=== PATIENT | female | born 1950 | race Caucasian/White ===

== ENCOUNTER 2025-05-21 14:36 | Outpatient (AMB) | payer BC, SELFPAY ==
--- NOTE | 2025-05-21 14:38 | A.OFFPC_ITS ---
Vital Signs 05/21/25 14:41 05/21/25 14:57 Height 5 ft 2.4 in Weight 154 lb 4 oz BMI 27.8 BP 172/84 H 154/86 H Blood Pressure Location Lt brachial Lt brachial Position Sitting Sitting Respiration 14 Pulse 84 Pulse Source Pulse Oximeter Temp 97.8 F Temp Source Oral Intake Visit Reasons: Blood pressure Intake Note: New patient visit Processor Grain Required: No Allergies No Known Allergies Allergy (Verified 05/21/25 14:39) Tobacco use date assessed: 05/21/25 Fall risk assessment: No Falls in past year Last assessed Fall Risk: 05/21/25 Dental Screening Dental Screen Date: 05/21/25 Did you have a dental visit in the last 12 months?: Yes Did you have a dental problem in the last 6 months where you did not have access to dental care?: No Was dental information given to patient?: Patient has dentist HPI HPI Comments History of Present Illness Details 75 year old female with a past medical h istory of DVT, PE, GERD, osteporosis, compression fracture, low back pain presenting to [facility] care. Transfer from [facility] [place]. Last seen in Mar. GI: history of GERD, barretts esopahagus. She was recently advised to follow up with her ophthalmologist retina specialist to consider endoscopy. Tells me her most recent labs with nephrology with worsened anemia MSK: OA. History of T12 compression fracture. CKD: Follows with renal annually, Dr Torsten Corey Heme/onc: History of PE, DVT 2013. On eliquis 2.5mg twice daily. Intolerant of xarelto in the past -melena. Mammogram: 06/17/2024, scheduled Jun Colonoscopy: 2022 DXA: 07/12/2023 Prevnar 13 in 2017 ROS CONSTITUTIONAL: Denies weight loss, fever and chills. HEENT: Denies changes in vision and hearing. RESPIRATORY: Denies SOB and cough. CV: Denies palpitations and CP GI: Denies abdominal pain, nausea, vomiting and diarrhea. : Denies dysuria and urinary frequency. MSK: Denies new myalgia and joint pain. SKIN: Denies rash and pruritus. NEUROLOGICAL: Denies headache PSYCHIATRIC: Denies recent changes in mood. PHYSICAL EXAM: GENERAL: Alert and oriented x 3. NAD EYES: EOMI. Anicteric. HENT: Moist mucous membranes. No scleral icterus. No cervical lymphadenopathy. LUNGS: Clear to auscultation bilaterally. CARDIOVASCULAR: Regular rate and rhythm. No murmur. No JVD. ABDOMEN: Soft, non-tender +bs EXTREMITIES: No edema. Non-tender. SKIN: No rashes or lesions. Warm. NEUROLOGIC: No focal neurological deficits. CN II-XII grossly intact PSYCHIATRIC: Cooperative. Appropriate mood and affect [facility] Surgical History (Updated 05/21/25 @ 15:02 by Olivia Red CMA) No pertinent past surgical history Family History Mother HTN (hypertension) Cancer Father Cancer Social History (Updated 05/22/25 @ 10:50 by Olivia Red CMA) Housing: House Alcohol intake: never Patient Tobacco Use Status: Former Tobacco user Cigarette Packs Per Day: 0.5 Years Smoked: 15 e-Cigarette/Vaping Use: Never Used Second Hand Smoke Exposure: No service: No Current occupational status: employed and retired Cognitive needs: No Hearing needs: No Vision needs: No Questionnaire PHQ-9 Over the last 2 weeks, how often have you been bothered by any of the following problems? 1. Little interest or pleasure in doing things: not at all 2. Feeling down, depressed, or hopeless: not at all 3. Trouble falling or staying asleep, or sleeping too much: not at all 4. Feeling tired or having little energy: not at all 5. Poor appetite or overeating: not at all 6. Feeling bad about yourself - or that you are a failure or have let yourself or your family down: not at all 7. Trouble concentrating on things, such as reading the newspaper or watching television: not at all 8. Moving or speaking so slowly that other people could have noticed. Or the opposite - being so fidgety or restless that you have been moving around a lot more than usual: not at all 9. Thoughts that you would be better off or of hurting yourself in some way: not at all Total score: 0 Depression Screening Interpretation: Negative Depression Screening Done: Yes 26234 - PHQ-9 Billing: Yes Source: Developed by Drs. Rogelio Parada, Catalina Nino, Max Simons and colleagues, with an educational stephenie from [employer]. Thrive Questionnaire Date Thrive assessed: 05/14/25 I am a: Patient What is your living situation today?: I have a steady place to live Within the past 12 months, did the food you bought not last and you didn't have the money to get more?: Never true Within the past 12 months, did you worry whether your food would run out before you got money to buy more?: Never true Do you have trouble paying for medicines?: I choose not to answer this question Do you have trouble getting transportation to medical appointments?: No Do you have trouble paying your heating and electricity bill?: No Do you have trouble taking care of your child, family member or friend?: No Do you have trouble with day-to-day activities such as bathing, preparing meals, shopping, managing finances, etc.?: No Are you currently unemployed and looking for a job?: No Are you interested in more education?: I choose not to answer this question Please select the resources that you would like help with: Paying for medicine Currently or been in a relationship where the following occur: No concerns reported THRIVE Score: 0 AUDIT C Alcohol Use Questionnaire (AUDIT-C) 1. How often do you have a drink containing alcohol?: Never 3. How often do you have six or more drinks on one occasion?: Never Total Score: 0 CHARLINE-7 AMB Questionnaire CHARLINE-7 Date CHARLINE - 7 assessed: 05/21/25 Feeling nervous, anxious, or on edge: 0 = Not at all Not being able to stop or control worryin = Not at all Worrying too much about different things: 0 = Not at all Trouble relaxin = Not at all Being so restless that it is hard to sit still: 0 = Not at all Becoming easily annoyed or irritable: 0 = Not at all Feeling afraid as if something awful might happen: 0 = Not at all Total CHARLINE-7 score (0-4 normal; 5-9 mild; 10-14 moderate; 15-21 severe): 0 Source: Developed by Drs. Rogelio Parada, Catalina Nino, Max Simons and colleagues, with an educational stephenie from [employer]. CHARLINE-7 Assessment Billing CHARLINE-7 Assessment Tool: CHARLINE-7 Assessment 91584 Physical exam (Primary Care) Vital Signs: Last Vital Signs Temp 97.8 F 05/21/25 14:41 Pulse 84 05/21/25 14:41 Resp 14 05/21/25 14:41 BP 154/86 H 05/21/25 14:57 BMI result Body Mass Index 27.8 Tobacco/Smoking Status: Tobacco use Status Tobacco use date assessed 05/21/25 05/21/25 14:46 Patient Tobacco Use Status Former Tobacco user 05/21/25 15:03 e-Cigarette/Vaping Use Never Used 05/21/25 15:03 PHQ-9: PHQ-9 Score PHQ-9: Total score 0 05/22/25 10:50 Depression Screening Interpretation: Negative Thrive Assessment: Date of Thrive Assessment Date Thrive assessed 05/14/25 05/21/25 14:38 Currently or been in a relationship where the following occur: No concerns reported Coding Level of Care Code New Pt Level 4 (51285) Complex EM visit Add On G2211 Diagnoses Gastroesophageal reflux disease, unspecified whether esophagitis present K21.9 Esophagitis presence: esophagitis presence not specified 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 Wells's esophagus type: with dysplasia of unspecified degree Stage 3 chronic kidney disease, unspecified whether stage 3a or 3b CKD N18.30 Chronic kidney disease stage 3 subtype: unspecified whether 3a or 3b Anemia, unspecified type D64.9 Anemia type: unspecified type History of DVT (deep vein thrombosis) Z86.718 Additional Codes CHARLINE-7 Assessment Billing - CHARLINE-7 Assessment Tool: CHARLINE-7 Assessment 92980 ([id number]) PHQ-9 - 06807 - PHQ-9 Billing: Yes ([id number]) Assessment & Plan Assessment & Plan (1) GERD (gastroesophageal reflux disease): Code(s): K21.9 - Gastro-esophageal reflux disease without esophagitis Category: Medical Qualifiers: Esophagitis presence: esophagitis presence not specified Qualified Code(s): K21.9 - Gastro-esophageal reflux disease without esophagitis (2) Wells esophagus: Code(s): K22.70 - Wells's esophagus without dysplasia Category: Medical Qualifiers: Wells's esophagus type: with dysplasia of unspecified degree Qualified Code(s): K22.719 - Wells's esophagus with dysplasia, unspecified (3) CKD (chronic kidney disease) stage 3, GFR 30-59 ml/min: Code(s): N18.30 - Chronic kidney disease, stage 3 unspecified Category: Medical Qualifiers: Chronic kidney disease stage 3 subtype: unspecified whether 3a or 3b Qualified Code(s): N18.30 - Chronic kidney disease, stage 3 unspecified (4) Anemia: Code(s): D64.9 - Anemia, unspecified Category: Medical Qualifiers: Anemia type: unspecified type Qualified Code(s): D64.9 - Anemia, unspecified (5) History of DVT (deep vein thrombosis): Code(s): Z86.718 - Personal history of other venous thrombosis and embolism Category: Medical Plan 75 year old to establish care Past medical, surgical, social reviewed. Anemia-CKD, ?GI-referral GI. Likely due for endoscop CKD-continue follow up nephrology Preventive measures for age discussed Orders: Orders Comprehensive Met. Panel 05/21/25 K21.9 - Gastro-esophageal reflux disease without esophagitis, K22.70 - Wells's esophagus without dysplasia, K63.5 - Polyp of colon, Z76.89 - Persons encountering health services in other specified circumstances, Z86.79 - Personal history of other diseases of the circulatory system Lipid Panel 05/21/25 K21.9 - Gastro-esophageal reflux disease without esophagitis, K22.70 - Wells's esophagus without dysplasia, K63.5 - Polyp of colon, Z76.89 - Persons encountering health services in other specified circumstances, Z86.79 - Personal history of other diseases of the circulatory system Hemoglobin A1c 05/21/25 K21.9 - Gastro-esophageal reflux disease without esophagitis, K22.70 - Wells's esophagus without dysplasia, K63.5 - Polyp of colon, Z76.89 - Persons encountering health services in other specified circumst ances, Z86.79 - Personal history of other diseases of the circulatory system XR DEXA axial skeleton 2 Months M85.80 - Other specified disorders of bone density and structure, unspecified site Complete Blood Count Auto Diff 05/21/25 K21.9 - Gastro-esophageal reflux disease without esophagitis, K22.70 - Wells's esophagus without dysplasia, K63.5 - Polyp of colon, Z76.89 - Persons encountering health services in other specified circumstances, Z86.79 - Personal history of other diseases of the circulatory system TSH reflex Free T4 05/21/25 K21.9 - Gastro-esophageal reflux disease without esophagitis, K22.70 - Wells's esophagus without dysplasia, K63.5 - Polyp of colon, Z76.89 - Persons encountering health services in other specified circumstances, Z86.79 - Personal history of other diseases of the circulatory system MM tomosynthesis screening BI 05/21/25 Z12.31 - Encounter for screening mammogram for malignant neoplasm of breast Referrals Gastroenterology Referral K21.9 - Gastro-esophageal reflux disease without esophagitis, K22.70 - Wells's esophagus without dysplasia, K63.5 - Polyp of colon, Z76.89 - Persons encountering health services in other specified circumstances, Z86.79 - Personal history of other diseases of the circulatory system
[2025-05-21 14:41] VITALS: BP 172/84; PULSE 84; RESP 14; TEMP 36.6; BMI 27.8
[2025-05-21 14:57] VITALS: BP 154/86
== END 2025-05-21 15:28 | disposition home or self-care (01) ==
LOC: HO.HMCFM 14:37
PROVIDERS: PCP Internal Medicine; Visit Provider Internal Medicine
DX: K21.9 Gastro-esophageal reflux disease without esophagitis (principal); K22.719 Barrett's esophagus with dysplasia, unspecified; N18.30 Chronic kidney disease, stage 3 unspecified; D64.9 Anemia, unspecified; Z86.718 Personal history of other venous thrombosis and embolism

== ENCOUNTER → 2025-05-21 14:36 | Outpatient (BNVA) | payer BC, SELFPAY | PROVIDERS: Visit Provider Internal Medicine | DX: Z76.89 Persons encountering health services in other specified circumstances (principal); K21.9 Gastro-esophageal reflux disease without esophagitis; K22.719 Barrett's esophagus with dysplasia, unspecified; N18.30 Chronic kidney disease, stage 3 unspecified; D63.1 Anemia in chronic kidney disease; Z86.718 Personal history of other venous thrombosis and embolism; Z86.711 Personal history of pulmonary embolism; Z79.01 Long term (current) use of anticoagulants; Z13.31 Encounter for screening for depression; Z13.39 Encounter for screening examination for other mental health and behavioral disorders | CPT/HCPCS: 96127 ==